=== PATIENT | male | born 1965 | race Caucasian/White ===

== ENCOUNTER 2018-03-10 19:38 | Emergency (ER) | payer OTHER ==
[~2018-03-10] VITALS: Ht 182.9 cm; Wt 133.8 kg
[~2018-03-10 19:38] MED LIST: AMLO10 PO; BACL10 PO; Crutch1 EACH MISC; DICL75ER PO; FAMO20 PO; GABA300 PO; HYDACE10B PO; HYDCHL25 PO; MELO7.5 PO; METO5A PO; NAPR500 PO; Norco 5-325 Ta1 EACH PO; OXYB5 PO; PANT40 PO; POTCHL10ER PO; Percocet 5-3251 EACH PO; Prednisone20 MG PO; RANI150 PO; SIMV10 PO; Silvadene20 GM TOP
[2018-03-10] MEDS ORDERED: PRED20 PO (22:20)
== END 2018-03-10 22:24 | disposition home or self-care (01) ==
LOC: ER 19:38
DX: J40 Bronchitis, not specified as acute or chronic (principal); I10 Essential (primary) hypertension; E78.00 Pure hypercholesterolemia, unspecified; Z88.5 Allergy status to narcotic agent; Z88.8 Allergy status to other drugs, medicaments and biological substances; Z87.891 Personal history of nicotine dependence
CPT/HCPCS: 71046; 94640; 99283-25

== ENCOUNTER 2018-09-14 10:18 | Emergency (ER) | payer OTHER ==
[~2018-09-14] VITALS: Ht 182.9 cm; Wt 132.4 kg
[~2018-09-14 10:18] MED LIST changes: +PRED20 PO
== END 2018-09-14 11:32 | disposition home or self-care (01) ==
LOC: ER 10:18
DX: Z45.09 Encounter for adjustment and management of other cardiac device (principal); Z88.5 Allergy status to narcotic agent; Z88.8 Allergy status to other drugs, medicaments and biological substances; Z79.52 Long term (current) use of systemic steroids; I10 Essential (primary) hypertension; E78.00 Pure hypercholesterolemia, unspecified; Z87.891 Personal history of nicotine dependence
CPT/HCPCS: 99281

== ENCOUNTER 2020-01-01 06:41 | Day surgery (SDC) | payer OTHER ==
[~2020-01-01] VITALS: Ht 182.9 cm; Wt 137.7 kg
[~2020-01-01 06:41] MED LIST changes: +AMLO5 PO; +FAMO40 PO; +HYDROCHLOROTH12.5 MG PO; +LOSA50 PO; +OMEP20ER PO; +Pravachol40 MG PO
--- NOTE | 2020-01-01 07:36 | NUR ---
[facility] in [facility] warming gown applied. History, Chart, Medications and Allergies reviewed before start of procedure.Lungs clear T/O to Auscultation. Patient confirms NPO status and agrees with scheduled surgery. Pre-Op teaching done. Pt verbalizes understanding. Patient States Post-Procedure ride home has been arranged. Surgical site prepped with 2% Chlorhexidine cloth wipe. Patient reports completing Chlorhexadine shower X2 prior to admission to hospital.
--- NOTE | 2020-01-01 13:15 | NUR ---
PT DROWSY. REPORTS PAIN 02/20 AT THIS TIME. DRESSING X 3 D&I.
--- NOTE | 2020-01-01 13:35 | NUR ---
PT HAS TOLERATED FOOD AND FLUID WELL. GIVEN ABOUT NORCO, REPORTS PAIN 4/10 AT THIS TIME.
--- NOTE | 2020-01-01 14:06 | NUR ---
Patient States Post-Procedure ride home has been arranged. Discharge instructions reviewed with patient. Patient verbalizes understanding. Copy given to patient to take home. Discharged via wheelchair to private car for ride home.
== END 2020-01-01 14:03 | disposition home or self-care (01) ==
LOC: ORSCMMR 06:41 → ORD 06:41
PROVIDERS: Surgery
PROC: 8E0W4CZ Robotic Assisted Procedure of Trunk Region, Percutaneous Endoscopic Approach (ICD-10-PCS; principal; 2020-01-01 08:30)
PROC: 0YUA4JZ Supplement Bilateral Inguinal Region with Synthetic Substitute, Percutaneous Endoscopic Approach (ICD-10-PCS; principal; 2020-01-01 08:30)
DX: K40.21 Bilateral inguinal hernia, without obstruction or gangrene, recurrent (principal); I10 Essential (primary) hypertension; G47.33 Obstructive sleep apnea (adult) (pediatric); J44.9 Chronic obstructive pulmonary disease, unspecified; E66.01 Morbid (severe) obesity due to excess calories; Z68.41 Body mass index [BMI] 40.0-44.9, adult; Z79.899 Other long term (current) drug therapy
CPT/HCPCS: 49651; S2900; A9270-GY; C1781; J0690; J1100; J1885; J2250; J2370; J2405; J2704; J3010; J7120

== ENCOUNTER 2020-04-18 15:43 | Emergency (ER) | payer OTHER ==
[~2020-04-18] VITALS: Ht 182.9 cm; Wt 142.0 kg
[2020-04-18] MEDS ORDERED: OXAYDO5 M1 PO (17:33)
[2020-04-18] MEDS ORDERED: LIDO700A20 TOP (17:33)
[2020-04-18] MEDS ORDERED: CYCL10 PO (17:33)
== END 2020-04-18 17:55 | disposition home or self-care (01) ==
LOC: ER 15:43
DX: S76.012A Strain of muscle, fascia and tendon of left hip, initial encounter (principal); I10 Essential (primary) hypertension; E78.5 Hyperlipidemia, unspecified; Z87.891 Personal history of nicotine dependence; W17.2XXA Fall into hole, initial encounter; Y93.89 Activity, other specified; Y92.009 Unspecified place in unspecified non-institutional (private) residence as the place of occurrence of the external cause
CPT/HCPCS: 72070; 72100; 73502; 96372; 99283-25; A9270; J1885

== ENCOUNTER → 2021-01-09 | Outpatient (CLI) | payer OTHER ==
[~2021-01-09] MED LIST changes: +CYCL10 PO; +LIDO700A20 TOP; +OXAYDO5 M1 PO
[2021-01-09 19:14] LABS: BASOPHILS ABSOLUTE AUTO 0.07 K/mm3 (0.00-0.23); BASOPHILS PERCENT AUTO 1 % (0-2); EOSINOPHILS ABSOLUTE AUTO 0.32 K/mm3 (0.00-0.68); EOSINOPHILS PERCENT AUTO 4 % (0-6); Hematocrit 47.3 % (37.0-53.0); Hemoglobin 15.9 g/dL (13.5-17.5); IMMATURE GRAN ABSOLUTE AUTO 0.03 K/mm3 (0.00-0.10); IMMATURE GRAN PERCENT AUTO 0 % (0-1); LYMPHOCYTES ABSOLUTE AUTO 2.53 K/mm3 (0.84-5.20); LYMPHOCYTES PERCENT AUTO 32 % (21-46); MONOCYTES ABSOLUTE AUTO 0.75 K/mm3 (0.16-1.47); MONOCYTES PERCENT AUTO 10 % (4-13); Mean Corpuscular HGB 31.2 pg (26.0-34.0); Mean Corpuscular HGB Conc 33.6 g/dL (31.5-36.5); Mean Corpuscular Volume 93 fL (80-100); Mean Platelet Volume 10.8 fL (9.1-12.4); NEUTROPHILS ABSOLUTE AUTO 4.17 K/mm3 (1.96-9.15); NEUTROPHILS PERCENT AUTO 53 % (41-73); Platelet Count 235 K/mm3 (150-400); RDW Coefficient Variation 12.1 % (11.7-14.2); RDW Standard Deviation 41.8 fL (35.1-46.3); Red Blood Cell Count 5.09 M/mm3 (4.30-5.90); White Blood Cell Count 7.87 K/mm3 (4.00-11.30)
[2021-01-09 20:03] LABS: Alanine Aminotransfer (ALT/SGP 25 U/L (12-78); Albumin, Blood 3.3 g/dL (3.4-5.0); Albumin/Globulin Ratio 0.8 (0.8-1.8); Alk Phos 91 U/L (50-136); Anion Gap 5 mmol/L (6-16); Aspartate Aminotrans (AST/SGOT 23 U/L (12-37); Bilirubin, Total 0.4 mg/dL (0.1-1.0); Blood Urea Nitrogen 9 mg/dL (8-24); Bun/Creatinine Ratio 12.4 (12.0-20.0); CO2, Blood 29 mmol/L (21-32); Calcium, Blood 8.9 mg/dL (8.5-10.1); Chloride, Blood 105 mmol/L (98-108); Creatinine, Blood 0.73 mg/dL (0.60-1.20); Glomerular Filtration Rate >60 (60-); Glucose, Blood 94 mg/dL (70-99); Potassium, Blood 3.8 mmol/L (3.5-5.5); Sodium, Blood 139 mmol/L (136-145); Total Protein, Blood 7.3 g/dL (6.4-8.2)
== END | disposition home or self-care (01) ==
LOC: LAB SHORT 17:53 → LAB 17:53
PROVIDERS: Nurse Practitioner Family
DX: L03.119 Cellulitis of unspecified part of limb (principal)
CPT/HCPCS: 80053; 85025

== ENCOUNTER → 2021-02-23 | Outpatient (CLI) | payer OTHER ==
[2021-02-23 09:26] LABS: BASOPHILS ABSOLUTE AUTO 0.03 K/mm3 (0.00-0.23); BASOPHILS PERCENT AUTO 0 % (0-2); EOSINOPHILS ABSOLUTE AUTO 0.05 K/mm3 (0.00-0.68); EOSINOPHILS PERCENT AUTO 0 % (0-6); Hematocrit 49.9 % (37.0-53.0); Hemoglobin 16.9 g/dL (13.5-17.5); IMMATURE GRAN ABSOLUTE AUTO 0.04 K/mm3 (0.00-0.10); IMMATURE GRAN PERCENT AUTO 0 % (0-1); LYMPHOCYTES ABSOLUTE AUTO 2.26 K/mm3 (0.84-5.20); LYMPHOCYTES PERCENT AUTO 20 % (21-46); MONOCYTES PERCENT AUTO 8 % (4-13); Mean Corpuscular HGB 31.1 pg (26.0-34.0); Mean Corpuscular HGB Conc 33.9 g/dL (31.5-36.5); Mean Corpuscular Volume 92 fL (80-100); Mean Platelet Volume 10.2 fL (9.1-12.4); NEUTROPHILS PERCENT AUTO 72 % (41-73); Platelet Count 206 K/mm3 (150-400); RDW Coefficient Variation 12.8 % (11.7-14.2); RDW Standard Deviation 43.1 fL (35.1-46.3); Red Blood Cell Count 5.43 M/mm3 (4.30-5.90); White Blood Cell Count 11.58 K/mm3 (4.00-11.30)
[2021-02-23 09:35] LABS: Alanine Aminotransfer (ALT/SGP 33 U/L (12-78); Albumin, Blood 3.8 g/dL (3.4-5.0); Albumin/Globulin Ratio 1.1 (0.8-1.8); Alk Phos 77 U/L (40-126); Anion Gap 8 mmol/L (6-16); Aspartate Aminotrans (AST/SGOT 23 U/L (12-37); Bilirubin, Total 1.4 mg/dL (0.1-1.0); Blood Urea Nitrogen 12 mg/dL (8-24); Bun/Creatinine Ratio 14.5 (12.0-20.0); CO2, Blood 29 mmol/L (21-32); Calcium, Blood 9.1 mg/dL (8.5-10.1); Chloride, Blood 102 mmol/L (98-108); Creatinine, Blood 0.83 mg/dL (0.60-1.20); Globulin, Blood 3.5 g/dL (2.2-4.0); Glomerular Filtration Rate >60 (60-); Glucose, Blood 104 mg/dL (70-99); Potassium, Blood 3.8 mmol/L (3.5-5.5); Sodium, Blood 139 mmol/L (136-145); Total Protein, Blood 7.3 g/dL (6.4-8.2)
== END | disposition home or self-care (01) ==
LOC: LAB SHORT 09:21
PROVIDERS: General Practice
DX: R22.42 Localized swelling, mass and lump, left lower limb (principal)
CPT/HCPCS: 80053; 85025

== ENCOUNTER 2021-11-24 09:41 | Day surgery (SDC) | payer OTHER ==
[~2021-11-24] VITALS: Ht 182.9 cm; Wt 137.0 kg
--- NOTE | 2021-11-24 10:39 | NUR ---
11/24/21 1039 NA YO THIS RN NOTED PT HAD IRREGULAR HEARTBEAT WHEN CHECKING VITALS. ADVISED CHARGE, RN AND PT WAS PLACED ON 3 LEAD EKG IN PRE OP ROOM. DR. CONWAY, ANESTHESIA, NOTIFIED AND 12- LEAD ORDERED. 12 LEAD SHOWED SINUS RHYTHM W/PVS IN BIGEMINY. PT REPORTS SOME LIGHTHEADEDNESS INTERMITTENTLY AT REST. PT CAN WALK A FLIGHT OF STAIRS. DENIES RESPIRATORY CONDITIONS EXCEPTING JASMIN, FOR WHICH HE USES A CPAP AT HOME NIGHTLY. HE JUST RECEIVED A NEW MACHINE. PT DENIES CHEST PAIN, PALPITATIONS, ETC.
== END 2021-11-24 11:10 | disposition home or self-care (01) ==
LOC: ORSCSDS 09:41
DX: G56.02 Carpal tunnel syndrome, left upper limb (principal); Z53.9 Procedure and treatment not carried out, unspecified reason
CPT/HCPCS: 93005; 93010; J2704; J3010

== ENCOUNTER → 2023-06-13 | Outpatient (CLI) | payer OTHER ==
[2023-06-13 13:16] LABS: BASOPHILS ABSOLUTE AUTO 0.05 K/mm3 (0.00-0.23); BASOPHILS PERCENT AUTO 1 % (0-2); EOSINOPHILS ABSOLUTE AUTO 0.06 K/mm3 (0.00-0.68); EOSINOPHILS PERCENT AUTO 1 % (0-6); Hematocrit 50.3 % (37.0-53.0); Hemoglobin 16.9 g/dL (13.5-17.5); IMMATURE GRAN ABSOLUTE AUTO 0.06 K/mm3 (0.00-0.10); IMMATURE GRAN PERCENT AUTO 1 % (0-1); LYMPHOCYTES PERCENT AUTO 27 % (21-46); MONOCYTES ABSOLUTE AUTO 0.68 K/mm3 (0.16-1.47); MONOCYTES PERCENT AUTO 10 % (4-13); Mean Corpuscular HGB 31.9 pg (26.0-34.0); Mean Corpuscular HGB Conc 33.6 g/dL (31.5-36.5); Mean Corpuscular Volume 95 fL (80-100); Mean Platelet Volume 10.5 fL (9.1-12.4); NEUTROPHILS ABSOLUTE AUTO 4.36 K/mm3 (1.96-9.15); NEUTROPHILS PERCENT AUTO 61 % (41-73); Platelet Count 205 K/mm3 (150-400); RDW Coefficient Variation 12.8 % (11.7-14.2); RDW Standard Deviation 45.4 fL (35.1-46.3); Red Blood Cell Count 5.29 M/mm3 (4.30-5.90); White Blood Cell Count 7.11 K/mm3 (4.00-11.30)
[2023-06-13 15:53] LABS: Percent Saturation 44.8 % (20.0-50.0)
[2023-06-13 16:22] LABS: Thyroid Stimulating Hormone 2.17 uIU/mL (0.360-4.800)
== END | disposition home or self-care (01) ==
LOC: LAB SHORT 09:55 → LAB 09:55
PROVIDERS: Student in an Organized Health Care Education/Training Program
DX: E53.8 Deficiency of other specified B group vitamins (principal); R53.83 Other fatigue
CPT/HCPCS: 82306; 82607; 82728; 82746; 83540; 83550; 84443; 85025

== ENCOUNTER 2024-02-08 07:27 | Emergency (ER) | payer OTHER ==
[~2024-02-08] VITALS: Ht 182.9 cm; Wt 151.1 kg
[~2024-02-08 07:27] MED LIST changes: -Pravachol40 MG PO; +Pravastatin Sod40 MG PO
[2024-02-08] MEDS ORDERED: MethylPREDNISolone Sod Succ 125 MG Vial IV ONE (08:35)
[2024-02-08] MEDS ORDERED: Albuterol 2.5 MG/3 ML VIAL INH SCH ×2 (08:35→10:15)
[2024-02-08] MEDS ORDERED: Ipratropium/Albuterol SulF 2.5-0.5MG/3 ML Amp INH ONE (08:35)
[2024-02-08 08:53] LABS: CORONAVIRUS COVID-19 AG Negative (NEGATIVE); INFLUENZA A AG Negative (NEGATIVE); INFLUENZA B AG Negative (NEGATIVE)
[2024-02-08] MEDS ORDERED: PredniSONE 20 MG Tab PO ONE (09:00)
[2024-02-08 11:00] VITALS: BP 156/78
[2024-02-08] MEDS ORDERED: PRED20 PO (11:06)
[2024-02-09] MEDS ORDERED: METO50ER PO (23:04)
[2024-02-09] MEDS ORDERED: POTA10T PO (23:05)
[2024-02-09] MEDS ORDERED: LOSA25 PO (23:05)
[2024-02-09] MEDS ORDERED: FINA5 PO (23:31)
[2024-02-09] MEDS ORDERED: DICLOFENAC SODI50 GM TOP (23:31)
[2024-02-09] MEDS ORDERED: PROAIR DIGIHAL90 MCG INH (23:32)
[2024-02-09] MEDS ORDERED: PRED20 PO (23:35)
== END 2024-02-08 11:33 | disposition home or self-care (01) ==
LOC: ER 07:27
PROVIDERS: Student in an Organized Health Care Education/Training Program
DX: J20.9 Acute bronchitis, unspecified (principal); I10 Essential (primary) hypertension; E78.5 Hyperlipidemia, unspecified; Z87.891 Personal history of nicotine dependence; Z11.52 Encounter for screening for COVID-19; Z88.5 Allergy status to narcotic agent; Z88.8 Allergy status to other drugs, medicaments and biological substances; Z79.899 Other long term (current) drug therapy
CPT/HCPCS: 71045; 87428-QW; 94644; 94645; 94664; 99285-25; J7512

== ENCOUNTER 2024-02-09 10:57 | Observation (INO) | payer OTHER ==
[~2024-02-09] VITALS: Ht 188 cm; Wt 158.8 kg
[2024-02-09 12:05] LABS: BASOPHILS ABSOLUTE AUTO 0.01 K/mm3 (0.00-0.23); BASOPHILS PERCENT AUTO 0 % (0-2); EOSINOPHILS PERCENT AUTO 0 % (0-6); Hematocrit 49.7 % (37.0-53.0); Hemoglobin 16.8 g/dL (13.5-17.5); IMMATURE GRAN ABSOLUTE AUTO 0.04 K/mm3 (0.00-0.10); IMMATURE GRAN PERCENT AUTO 0 % (0-1); LYMPHOCYTES ABSOLUTE AUTO 0.92 K/mm3 (0.84-5.20); LYMPHOCYTES PERCENT AUTO 10 % (21-46); MONOCYTES ABSOLUTE AUTO 0.21 K/mm3 (0.16-1.47); MONOCYTES PERCENT AUTO 2 % (4-13); Mean Corpuscular HGB 31.6 pg (26.0-34.0); Mean Corpuscular HGB Conc 33.8 g/dL (31.5-36.5); Mean Corpuscular Volume 93 fL (80-100); Mean Platelet Volume 9.9 fL (9.1-12.4); NEUTROPHILS ABSOLUTE AUTO 7.74 K/mm3 (1.96-9.15); NEUTROPHILS PERCENT AUTO 87 % (41-73); Platelet Count 199 K/mm3 (150-400); RDW Standard Deviation 44.6 fL (35.1-46.3); Red Blood Cell Count 5.32 M/mm3 (4.30-5.90); White Blood Cell Count 8.92 K/mm3 (4.00-11.30)
[2024-02-09 12:29] LABS: Albumin, Blood 3.5 g/dL (3.4-5.0); Albumin/Globulin Ratio 0.9 (0.8-1.8); Bilirubin, Total 0.7 mg/dL (0.1-1.0); Bun/Creatinine Ratio 16.7 (12.0-20.0); Calcium, Blood 9.2 mg/dL (8.5-10.1); Creatinine, Blood 0.66 mg/dL (0.60-1.20); Globulin, Blood 3.8 g/dL (2.2-4.0); Potassium, Blood 4.4 mmol/L (3.5-5.5); Total Protein, Blood 7.3 g/dL (6.4-8.2)
[2024-02-09] MEDS ORDERED: Ipratropium/Albuterol SulF 2.5-0.5MG/3 ML Amp INH ONE (15:20)
[2024-02-09] MEDS ORDERED: Ipratropium Bromide INH 0.02% 0.5 mg/2.5ML Vial INH SCH ×2 (16:40→19:15)
[2024-02-09] MEDS ORDERED: Albuterol 2.5 MG/3 ML VIAL INH SCH ×2 (16:40→19:15)
[2024-02-09] MEDS ORDERED: Ketorolac Tromethamine 15mg Vial IV ONE (17:25)
[2024-02-09] MEDS ORDERED: Azithromycin 500 MG in NS 250 ML IV ONE (21:20)
[2024-02-09] MEDS ORDERED: MethylPREDNISolone Sod Succ 125 MG Vial IV SCH (22:25)
[2024-02-09] MEDS ORDERED: Metoprolol Succinate 50 MG TABCR PO SCH (22:27)
[2024-02-09] MEDS ORDERED: HydrALAZINE HCl 20 MG / ML 1ML Vial IV PRN (22:35)
[2024-02-09] MEDS ORDERED: FLU VACC TS2024-25(6MOS UP)/PF 45 MCG/0.5 ML SYRINGE IM SCH (22:35)
[2024-02-09] MEDS ORDERED: Albuterol 2.5 MG/3 ML VIAL INH PRN (22:35)
[2024-02-09] MEDS ORDERED: Ipratropium/Albuterol SulF 2.5-0.5MG/3 ML Amp INH PRN (22:35)
[2024-02-09] MEDS ORDERED: METO50ER PO (23:04)
[2024-02-09] MEDS ORDERED: LOSA25 PO (23:05)
[2024-02-09] MEDS ORDERED: POTA10T PO (23:05)
[2024-02-09 23:29] VITALS: BP 143/94
[2024-02-09] MEDS ORDERED: DICLOFENAC SODI50 GM TOP (23:31)
[2024-02-09] MEDS ORDERED: FINA5 PO (23:31)
[2024-02-09] MEDS ORDERED: PROAIR DIGIHAL90 MCG INH (23:32)
[2024-02-09] MEDS ORDERED: PRED20 PO (23:35)
[2024-02-09] MEDS ORDERED: Ipratropium/Albuterol SulF 2.5-0.5MG/3 ML Amp INH SCH (23:35)
[2024-02-10] MEDS ORDERED: Calcium Carbonate 500 MG Tab Chew PO PRN (02:55)
[2024-02-10 04:39] VITALS: BP 147/97
[2024-02-10 05:32] LABS: BASOPHILS ABSOLUTE AUTO 0.02 K/mm3 (0.00-0.23); BASOPHILS PERCENT AUTO 0 % (0-2); EOSINOPHILS PERCENT AUTO 0 % (0-6); Hematocrit 49.5 % (37.0-53.0); Hemoglobin 16.6 g/dL (13.5-17.5); IMMATURE GRAN ABSOLUTE AUTO 0.04 K/mm3 (0.00-0.10); IMMATURE GRAN PERCENT AUTO 0 % (0-1); LYMPHOCYTES ABSOLUTE AUTO 0.86 K/mm3 (0.84-5.20); LYMPHOCYTES PERCENT AUTO 9 % (21-46); MONOCYTES ABSOLUTE AUTO 0.17 K/mm3 (0.16-1.47); MONOCYTES PERCENT AUTO 2 % (4-13); Mean Corpuscular HGB 31.8 pg (26.0-34.0); Mean Corpuscular HGB Conc 33.5 g/dL (31.5-36.5); Mean Corpuscular Volume 95 fL (80-100); Mean Platelet Volume 9.9 fL (9.1-12.4); NEUTROPHILS ABSOLUTE AUTO 8.18 K/mm3 (1.96-9.15); NEUTROPHILS PERCENT AUTO 88 % (41-73); Platelet Count 185 K/mm3 (150-400); RDW Coefficient Variation 13.1 % (11.7-14.2); RDW Standard Deviation 45.8 fL (35.1-46.3); Red Blood Cell Count 5.22 M/mm3 (4.30-5.90); White Blood Cell Count 9.27 K/mm3 (4.00-11.30)
--- NOTE | 2024-02-10 05:51 | NUR ---
SHIFT SUMMARY: PT IS ALERT AND ORIENTED. PT IS INDEPENDENT IN THE ROOM. PT CALLS APPROPRIATELY. PT IS CALM AND COOPERATIVE WITH CARE. PT MAINTINING O2 SATS > 90% ON ROOM AIR. PT DENIES PAIN, NAUSEA, AND VOMITING. PT REPORTS SOB WITH EXERTION. PT REPORTED GI ACIDITY, REQUESTED TUMS, CALLED DR. ARRINGTON AND RECEIVED AND ORDER, GIVEN TO PT. PT SLEPT MOST OF THE NIGHT WHEN NOT DISTURBED. NO ACUTE CHANGES OR COMPLICATIONS THIS SHIFT. BED IN LOW POSITION, CALL LIGHT WITHIN REACH. WILL CONTINUE TO MONITOR.
[2024-02-10 06:00] LABS: Albumin, Blood 3.3 g/dL (3.4-5.0); Albumin/Globulin Ratio 0.9 (0.8-1.8); Bilirubin, Total 0.8 mg/dL (0.1-1.0); Bun/Creatinine Ratio 19.4 (12.0-20.0); Calcium, Blood 9.2 mg/dL (8.5-10.1); Creatinine, Blood 0.67 mg/dL (0.60-1.20); Globulin, Blood 3.7 g/dL (2.2-4.0); Potassium, Blood 4.3 mmol/L (3.5-5.5)
[2024-02-10 07:38] VITALS: BP 150/90
[2024-02-10] MEDS ORDERED: Enoxaparin 40 MG/0.4 ML SYR SC SCH (09:00)
[2024-02-10] MEDS ORDERED: AZIT250 PO (10:37)
[2024-02-10] MEDS ORDERED: Acetaminophen 325 MG TABLET PO ONE (11:05)
--- NOTE | 2024-02-10 12:02 | NUR ---
AM NOTE ASSUMED CARE OF PATIENT AT APPROX. 0700. PATIENT IN BED WITH CPAP ON. PATIENT A&OX4. PATIENT REPORTING ABD CRAMPING WITH ONE EPISODE OF DIARRHEA LAST NIGHT. DR. BRAY NOTIFIED, ONE TIME DOSE OF TYLENOL ORDERED. HEATING PAD APPLIED TO PATIENT ABD. PATIENT ON ROOM AIR. PER DR. BRAY, PATIENT TO DISCHARGE TODAY. PATIENT AWARE OF PLAN AND AGREEABLE. TO TRANSPORT AT DISCHARGE.
--- NOTE | 2024-02-10 14:01 | NUR ---
DISCHARGE PATIENT TRANSPORTED VIA WHEELCHAIR TO PRIVATE VEHICLE. DISCHARGE EXPLAINED TO PATIENT. PATIENT STATED UNDERSTANDING. PACKET SENT WITH PATIENT. IV REMOVED BY MAMADOU TEMPLETON WITHOUT DIFFICULTY. BELONGINGS SENT WITH PATIENT. NEW MEDICATIONS FAXED TO PREFERRED PHARMACY. PHARMACIST WENT OVER NEW MEDICATIONS WITH PATIENT. THIS RN ALSO WENT OVER NEW MEDICATIONS WITH PATIENT. PATIENT STATED UNDERSTANDING. PATIENT HAS APPT WITH PCP ALREADY SCHEDULED FOR 02/18/24. PATIENT INSTRUCTED TO KEEP APPT.
[2024-02-10] MEDS ORDERED: Azithromycin 500 MG in NS 250 ML IV SCH (21:00)
== END 2024-02-10 12:16 | disposition home or self-care (01) ==
LOC: ER 10:57 → MEDS 10:58
PROVIDERS: Family Medicine; Physician Assistant; ADMIT Student in an Organized Health Care Education/Training Program
DX: J44.1 Chronic obstructive pulmonary disease with (acute) exacerbation (principal); G47.33 Obstructive sleep apnea (adult) (pediatric); Z87.891 Personal history of nicotine dependence; I10 Essential (primary) hypertension; Z88.5 Allergy status to narcotic agent; Z88.8 Allergy status to other drugs, medicaments and biological substances; Z79.899 Other long term (current) drug therapy
CPT/HCPCS: 36415; 80053; 85025; 93005; 93010; 94640; 94644; 94645; 94660; 94664; 94762; 96365; 96375; 99285-25; A9270; G0378; J0456; J1885; J2919; J7050

== ENCOUNTER 2024-04-22 08:28 | Day surgery (SDC) | payer OTHER ==
[~2024-04-22] VITALS: Ht 182.9 cm; Wt 150.0 kg
[~2024-04-22 08:28] MED LIST changes: +AZIT250 PO; +DICLOFENAC SODI50 GM TOP; +FINA5 PO; +LOSA25 PO; +Lactated Ringer's 1,000 ML IV ONE; +METO50ER PO; +POTA10T PO; +PROAIR DIGIHAL90 MCG INH
[2024-04-22] MEDS ORDERED: propofoL 20 ML IV ONE (08:33)
[2024-04-22] MEDS ORDERED: Midazolam HCl 1MG / ML 2ML Vial ONE (08:34)
[2024-04-22] MEDS ORDERED: FentaNYL Citrate 50 MCG/ML 2 ML Injection ONE (08:34)
[2024-04-22] MEDS ORDERED: CeFAZolin Sodium 3,000 MG VIAL ONE (08:35)
[2024-04-22] MEDS ORDERED: Bupivacaine 0.5% HCl 5 MG/ML 30MLVIAL ONE (08:35)
[2024-04-22] MEDS ORDERED: EPINEPhrine HCl 1 MG/ML 1ML Amp ONE ×2 (08:35→09:09)
[2024-04-22] MEDS ORDERED: STIOLTO RESPIMAT4 G1 IH (08:50)
[2024-04-22] MEDS ORDERED: IPRAT-ALBUT 0.5-3 ML INH (08:51)
[2024-04-22] MEDS ORDERED: Lactated Ringer's 1,000 ML IV ONE (09:00)
--- NOTE | 2024-04-22 09:32 | NUR ---
04/22/24 0932 JENA VARELA 0929 TIME OUT DONE WITH MO ANESTHESIA
[2024-04-22] MEDS ORDERED: Ondansetron HCl 2 MG / ML 2ML Vial ONE (09:46)
[2024-04-22] MEDS ORDERED: Dexamethasone Sod Phos 10 MG/ML 1ML VIAL ONE (09:46)
[2024-04-22] MEDS ORDERED: SuccINYLCHOLINE Chloride 100 MG/5 ML 5MLSYR ONE (09:46)
[2024-04-22] MEDS ORDERED: Rocuronium Bromide 10 MG/ML 5ML Injection IV ONE (09:46)
[2024-04-22] MEDS ORDERED: Ketorolac Tromethamine 30mg Vial ONE (10:23)
[2024-04-22] MEDS ORDERED: Sugammadex Sodium 200 MG/2ML SDV (100 MG/ML) ONE (10:23)
[2024-04-22] MEDS ORDERED: Scopolamine Hydrobromide Patch ONE (11:24)
[2024-04-22] MEDS ORDERED: OxyCODONE HCL 5 MG TAB ONE (11:25)
--- NOTE | 2024-04-22 11:45 | NUR ---
04/22/24 1145 CLEMENT MIRANDA SCOPOLAMINE PATCH APPLICED BEHIND RIGHT EAR INSTRUCTION GIVEN REGARDING HANDWASHING AND REMOVAL IN 3 DAYS
[2024-04-22 11:47] VITALS: BP 110/77
== END 2024-04-22 11:59 | disposition home or self-care (01) ==
LOC: ORSCSDS 08:28
PROVIDERS: Orthopaedic Surgery
PROC: 0RBK4ZZ Excision of Left Shoulder Joint, Percutaneous Endoscopic Approach (ICD-10-PCS; principal; 2024-04-22 09:40)
DX: M75.32 Calcific tendinitis of left shoulder (principal); I10 Essential (primary) hypertension; J44.9 Chronic obstructive pulmonary disease, unspecified; G47.33 Obstructive sleep apnea (adult) (pediatric); E66.01 Morbid (severe) obesity due to excess calories; Z68.41 Body mass index [BMI] 40.0-44.9, adult; E78.5 Hyperlipidemia, unspecified; Z87.891 Personal history of nicotine dependence; K21.9 Gastro-esophageal reflux disease without esophagitis; Z79.899 Other long term (current) drug therapy
CPT/HCPCS: A9270; J0171; J0330; J0690; J1100; J1885; J2250; J2405; J2704; J3010; J7120

== ENCOUNTER → 2024-05-12 | Outpatient (CLI) | payer OTHER ==
[~2024-05-12] MED LIST changes: +IPRAT-ALBUT 0.5-3 ML INH; -Lactated Ringer's 1,000 ML IV ONE; +STIOLTO RESPIMAT4 G1 IH
[2024-05-12 20:12] LABS: Albumin, Blood 3.5 g/dL (3.4-5.0); Albumin/Globulin Ratio 0.9 (0.8-1.8); Bilirubin, Total 0.4 mg/dL (0.1-1.0); Bun/Creatinine Ratio 13.9 (12.0-20.0); Creatinine, Blood 0.65 mg/dL (0.60-1.20); Potassium, Blood 4.1 mmol/L (3.5-5.5); Total Protein, Blood 7.5 g/dL (6.4-8.2)
[2024-05-13 11:29] LABS: BASOPHILS ABSOLUTE AUTO 0.06 K/mm3 (0.00-0.23); BASOPHILS PERCENT AUTO 1 % (0-2); EOSINOPHILS ABSOLUTE AUTO 0.17 K/mm3 (0.00-0.68); EOSINOPHILS PERCENT AUTO 2 % (0-6); Hematocrit 51.6 % (37.0-53.0); Hemoglobin 16.9 g/dL (13.5-17.5); IMMATURE GRAN ABSOLUTE AUTO 0.05 K/mm3 (0.00-0.10); IMMATURE GRAN PERCENT AUTO 1 % (0-1); LYMPHOCYTES ABSOLUTE AUTO 2.39 K/mm3 (0.84-5.20); LYMPHOCYTES PERCENT AUTO 33 % (21-46); MONOCYTES ABSOLUTE AUTO 0.61 K/mm3 (0.16-1.47); MONOCYTES PERCENT AUTO 8 % (4-13); Mean Corpuscular HGB 31.5 pg (26.0-34.0); Mean Corpuscular HGB Conc 32.8 g/dL (31.5-36.5); Mean Corpuscular Volume 96 fL (80-100); Mean Platelet Volume 10.9 fL (9.1-12.4); NEUTROPHILS ABSOLUTE AUTO 4.08 K/mm3 (1.96-9.15); NEUTROPHILS PERCENT AUTO 55 % (41-73); Platelet Count 236 K/mm3 (150-400); RDW Standard Deviation 46.4 fL (35.1-46.3); Red Blood Cell Count 5.36 M/mm3 (4.30-5.90); White Blood Cell Count 7.36 K/mm3 (4.00-11.30)
[2024-05-13 12:32] LABS: CHOL/HDL RATIO 3.4; Cholesterol 182 mg/dL (50-200); HDL Cholesterol 54 mg/dL (>39); LDL/HDL RATIO 1.8; Low Density Lipoprotein Chol 95 mg/dL (0-110); Triglycerides 163 mg/dL (30-160); Very Low Density Lipoprot Chol 32 mg/dL (6-32)
[2024-05-15 19:34] LABS: HIV 1,2 COMBO ANTIGEN/ANTIBODY Negative (Negative)
[2024-05-15 22:17] LABS: HEPATITIS C AB CIA INTERP Negative (Negative); HEPATITIS C ANTIBODY CIA INDEX 0.05 IV
== END ==
LOC: LAB SHORT 17:56 → LAB 17:56
PROVIDERS: Student in an Organized Health Care Education/Training Program
DX: Z00.00 Encounter for general adult medical examination without abnormal findings (principal); Z11.59 Encounter for screening for other viral diseases; Z11.4 Encounter for screening for human immunodeficiency virus [HIV]; E78.5 Hyperlipidemia, unspecified; Z79.899 Other long term (current) drug therapy
CPT/HCPCS: 80053; 80061; 83036; 85025; 86803; 87389

== ENCOUNTER 2024-09-07 07:36 | Day surgery (SDC) | payer OTHER ==
[~2024-09-07] VITALS: Ht 15.2 cm; Wt 151.5 kg
[~2024-09-07 07:36] MED LIST changes: +Lidocaine HCl 2% 10 ML SDA ONE; +NS 0 ML IV ONE
[2024-09-07] MEDS ORDERED: CeFAZolin Sodium 3,000 MG VIAL ONE (09:01)
[2024-09-07] MEDS ORDERED: FARXIGA5 MG PO (09:11)
[2024-09-07] MEDS ORDERED: FORMOTEROL20 MCG/2 M INH (09:13)
[2024-09-07] MEDS ORDERED: Midazolam HCl 1MG / ML 2ML Vial ONE (09:43)
[2024-09-07] MEDS ORDERED: Sugammadex Sodium 200 MG/2ML SDV (100 MG/ML) ONE (09:57)
--- NOTE | 2024-09-07 10:43 | NUR ---
09/07/24 Rosario3 Lorraine Deshpande GLASSES RETURNED TO PATIENT
--- NOTE | 2024-09-07 10:44 | NUR ---
09/07/24 1044 Lorraine Deshpande REPORT RECEIVED FROM [facility] AND RN. ORAL AIRWAY REMOVED PRIOR TO ARRIVAL TO PACU.
[2024-09-07 11:17] VITALS: BP 134/99
== END 2024-09-07 11:24 | disposition home or self-care (01) ==
LOC: ORSCSDS 07:36
PROVIDERS: Orthopaedic Surgery
PROC: 01N40ZZ Release Ulnar Nerve, Open Approach (ICD-10-PCS; principal; 2024-09-07 09:30)
DX: G56.22 Lesion of ulnar nerve, left upper limb (principal); J44.9 Chronic obstructive pulmonary disease, unspecified; K21.9 Gastro-esophageal reflux disease without esophagitis; I10 Essential (primary) hypertension; E78.5 Hyperlipidemia, unspecified; G47.33 Obstructive sleep apnea (adult) (pediatric); G25.81 Restless legs syndrome; E66.01 Morbid (severe) obesity due to excess calories; Z68.42 Body mass index [BMI] 45.0-49.9, adult; Z87.891 Personal history of nicotine dependence; Z79.899 Other long term (current) drug therapy
CPT/HCPCS: J0690; J2003; J2250; J2704; J7040; J7120